=== PATIENT | female | born 1970 | race Caucasian/White ===

== ENCOUNTER 2018-05-19 20:38 | Emergency (ER) | payer MEDICAID, SELFPAY ==
[~2018-05-19] VITALS: Ht 167.6 cm; Wt 90.9 kg
[2018-05-19 22:15] LABS: BASOPHILS # (AUTO) 0.04 x10^3/uL (0-0.1); BASOPHILS % (AUTO) 1 % (0-1); EOSINOPHILS # (AUTO) 0.16 x10^3/uL (0-0.4); EOSINOPHILS % (AUTO) 3 % (1-7); LYMPHOCYTES # (AUTO) 1.03 x10^3/uL (1-3.4); LYMPHOCYTES % (AUTO) 20 % (22-44); MD NO; MEAN CORPUSCULAR HEMOGLOBIN 21.7 pg (27.0-34.8); MEAN CORPUSCULAR VOLUME 67.9 fL (80-100); MEAN PLATELET VOLUME 9.8 fL (7.4-10.4); MONOCYTES # (AUTO) 0.57 x10^3/uL (0.2-0.8); MONOCYTES % (AUTO) 11 % (2-9); NEUTROPHILS # (AUTO) 3.42 x10^3/uL (1.8-6.8); NEUTROPHILS % (AUTO) 66 % (42-75); PLATELET COUNT 257 x10^3/uL (130-400); RED BLOOD COUNT 4.34 x10^6/uL (3.82-5.3); RED CELL DISTRIBUTION WIDTH 19.4 % (9.6-15.2)
[2018-05-19 22:24] LABS: ALANINE AMINOTRANSFERASE 34 U/L (12-78); ALBUMIN 3.3 g/dL (3.4-5.0); ANION GAP 5 mmol/L (5-15); CALCIUM 8.6 mg/dL (8.5-10.1); CHLORIDE 109 mmol/L (98-107); CREATININE 0.73 mg/dL (0.55-1.02)
[2018-05-19 22:29] LABS: ALKALINE PHOSPHATASE 101 U/L (45-117); BILIRUBIN,TOTAL 0.2 mg/dL (0.2-1.0); TROPONIN I < 0.015 ng/mL (0.000-0.045)
[2018-05-19 23:57] VITALS: BP 142/84
== END 2018-05-20 | disposition home or self-care (01) ==
LOC: ED 23:59
DX: R10.12 Left upper quadrant pain (principal); R10.84 Generalized abdominal pain; Z85.038 Personal history of other malignant neoplasm of large intestine
CPT/HCPCS: 36415; 74021; 76700; 80053; 83690; 84484; 85025; 99285

== ENCOUNTER 2020-06-26 12:57 | Emergency (ER) | payer MEDICAID ==
[~2020-06-26] VITALS: Ht 167.6 cm; Wt 96.9 kg
--- NOTE | 2020-06-26 13:25 | NUR ---
C/O SOB/COUGH AND SORE THROAT X4 DAYS, COUGH IS PRODUCTIVE. PT REPORTS SHE HAD NEGATIVE COVID TEST 2 DAYS AGO. PLACED ON ALL MONITORS, CALL LIGHT PLACED WITHIN REACH.
[2020-06-26] MEDS ORDERED: ALBU18HF INH (13:33)
[2020-06-26 13:48] LABS: BASOPHILS # (AUTO) 0.06 x10^3/uL (0-0.1); BASOPHILS % (AUTO) 1 % (0-1); EOSINOPHILS # (AUTO) 0.32 x10^3/uL (0-0.4); EOSINOPHILS % (AUTO) 6 % (1-7); LYMPHOCYTES # (AUTO) 1.44 x10^3/uL (1-3.4); LYMPHOCYTES % (AUTO) 25 % (22-44); MD NO; MEAN CORPUSCULAR HEMOGLOBIN 27.1 pg (27.0-34.8); MEAN CORPUSCULAR HGB CONC 32.5 g/dL (32.4-35.8); MEAN CORPUSCULAR VOLUME 83.5 fL (80-100); MEAN PLATELET VOLUME 9.9 fL (7.4-10.4); MONOCYTES # (AUTO) 0.49 x10^3/uL (0.2-0.8); MONOCYTES % (AUTO) 9 % (2-9); NEUTROPHILS # (AUTO) 3.43 x10^3/uL (1.8-6.8); NEUTROPHILS % (AUTO) 60 % (42-75); PLATELET COUNT 207 x10^3/uL (130-400); RED BLOOD COUNT 5.45 x10^6/uL (3.82-5.3); RED CELL DISTRIBUTION WIDTH 14.9 % (9.6-15.2)
[2020-06-26 13:58] LABS: ALANINE AMINOTRANSFERASE 175 U/L (12-78); ALBUMIN 3.3 g/dL (3.4-5.0); ANION GAP 7 mmol/L (5-15); CHLORIDE 106 mmol/L (98-107)
[2020-06-26 14:02] LABS: ALKALINE PHOSPHATASE 166 U/L (45-117); BILIRUBIN,TOTAL 0.3 mg/dL (0.2-1.0); TOTAL PROTEIN 7.7 g/dL (6.4-8.2); TROPONIN I < 0.015 ng/mL (0.000-0.045)
--- NOTE | 2020-06-26 14:28 | NUR ---
US AT BEDSIDE.
[2020-06-26 15:26] VITALS: BP 158/93
--- NOTE | 2020-06-26 15:36 | NUR ---
PT RESTING ON [facility], IN NAD, VSS. CALL LIGHT WITHIN REACH.
== END 2020-06-26 16:16 | disposition home or self-care (01) ==
LOC: ED 14:25
DX: R06.00 Dyspnea, unspecified (principal); Z20.828 Contact with and (suspected) exposure to other viral communicable diseases; R05 Cough; J02.9 Acute pharyngitis, unspecified; R06.02 Shortness of breath; R00.0 Tachycardia, unspecified; Z85.038 Personal history of other malignant neoplasm of large intestine
CPT/HCPCS: 36415; 71045; 76700; 80053; 84484; 85025; 85379; 87635; 93005; 99285